=== PATIENT | male | born 1960 | race Caucasian/White ===

== ENCOUNTER 2018-03-08 06:27 | Day surgery (SDC) | payer OTHER ==
[2018-03-07 12:47] VITALS: BMI 27.1
--- NOTE | 2018-03-08 06:01 | HP ---
SHORT STAY HISTORY AND PHYSICAL DATE OF ADMISSION: 03/08/2018 HISTORY OF PRESENT ILLNESS: Shan Sawyer is a 57-year-old male, who comes for colonoscopy for col on cancer screening. Patient is high risk for colon cancer. Father had colon cancer. The patient h as no specific GI symptoms. Bowel movements are regular. No history of abdominal pain, no rectal bl eeding. ALLERGIES: None. SOCIAL HISTORY: The patient does not smoke or drink alcohol. MEDICAL ILLNESSES: 1. Hypertension. 2. Hyperlipidemia. 3. Depression. PHYSICAL EXAMINATION: VITAL SIGNS: Pulse is 70, blood pressure . CARDIOVASCULAR: First and second heart sounds were heard. LUNGS: Clear to auscultation. ABDOMEN: Soft to palpate. No organomegaly. No tenderness. No masses. ADMITTING DIAGNOSIS: A 57-year-old male with family history of colon cancer. He comes for a colonos copy for colon cancer screening.
--- NOTE | 2018-03-08 12:32 | OP ---
DATE OF SURGERY: 03/08/2018 OPERATIVE PROCEDURE: Colonoscopy with biopsy. PREOPERATIVE DIAGNOSIS: A 57-year-old male undergoing colonoscopy for colon cancer screeni ng. He does have family history of colon cancer. POSTOPERATIVE DIAGNOSES: 1. Mild sigmoid diverticular disease. 2. Hemorrhoids. 3. Small sessile polyp versus hyperplastic mucosa, cecum and biopsied. PROCEDURE IN DETAIL: The patient was placed on his left lateral position and was given sedation by [facility]. A rectal exam was done and the scope was advanced into the rectum. No lesion felt on rectal exam. A [employer]ax video colonoscope was introduced into the rectum and advanced all the way into cecum. The prep was good. He did have some fecal material coating the mucosa, which was wa shed out. The appendiceal orifice, ileocecal valve, no pathology seen. There is an area of polypoid -appearing mucosa in the cecum. This was biopsied. The ascending colon, hepatic flexure, transverse colon, splenic flexure, descending colon, no pathology seen. The patient had occasional sigmoid div erticular disease. Retroflexion of scope in the rectum show hemorrhoids. DISCHARGE PLANNING: This is a 57-year-old male with family history of colon cancer. Appar ently, his father had colon cancer. He underwent colonoscopy with biopsy. DISCHARGE RECOMMENDATIONS: 1. Advised to call me if he does have abdominal pain, hematochezia. 2. In the absence of any of the above symptoms, come back to me next week. We will plan to repeat c olonoscopy in 3 years.
== END 2018-03-08 08:45 | disposition home or self-care (01) ==
LOC: SDC 06:27
PROVIDERS: ATTEND Internal Medicine Gastroenterology
PROC: 0DBH8ZX Excision of Cecum, Via Natural or Artificial Opening Endoscopic, Diagnostic (ICD-10-PCS; principal; 2018-03-08)
DX: Z12.11 Encounter for screening for malignant neoplasm of colon (principal); I10 Essential (primary) hypertension; E78.5 Hyperlipidemia, unspecified; F32.9 Major depressive disorder, single episode, unspecified; K57.30 Diverticulosis of large intestine without perforation or abscess without bleeding; K64.9 Unspecified hemorrhoids; Z80.0 Family history of malignant neoplasm of digestive organs; Z79.899 Other long term (current) drug therapy
CPT/HCPCS: 88305